=== PATIENT | male | born 1990 | race African-American/Black ===

== ENCOUNTER 2018-05-23 02:17 | Emergency (ER) | payer SELFPAY ==
[~2018-05-23] VITALS: Ht 165.1 cm; Wt 43.0 kg
[2018-05-23 02:24] VITALS: BP 116/78; PULSE 79; RESP 16; Ht 165.1 cm; Wt 43.0 kg
--- NOTE | 2018-05-23 03:05 | ERD ---
ER Documentation Chief Complaint Chief Complaint lump to l cheek x 1 week HPI This is a 27-year-old male who presents to emergency department with complaints of right cheek swelling for about a week. Denies use of illegal drugs. Stated that he has a house in his teeth due to tooth decay. Denies headache, head injury, loss of consciousness, dizziness, neck pain, neck stiffness, throat pain, difficulty swallowing, difficulty breathing lying flat, shoulder pain, chest pain, back pain, abdominal pain, nausea, vomiting, constipation, diarrhea, urinary symptoms, loss of bowel and bladder control, trauma, injury, falls, difficulty walking due to pain, numbness or tingling sensation, calf pain, recent travel, recent major surgery in the last 3 weeks, calf pain, recent long travel, recent exposure to any illness, recent antibiotic use in the last 3 months, fever, chills, seizures. Past medical history: Denies. Surgical history: Denies. Social: Denies smoking, use of alcoholic beverages, use of illegal drugs. ROS All systems reviewed and are negative except as per history of present illness. Medications Home Meds Active Scripts Ibuprofen* (Motrin*) 600 Mg Tab, 600 MG PO Q6H PRN for PAIN AND OR ELEVATED TEMP, #30 TAB Prov:PASILABAN,KLAR F 05/23/18 Sulfamethoxazole/Trimethoprim* (Bactrim Ds* Tablet) 1 Each Tablet, 1 TAB PO BID for 7 Days, #14 TAB Prov:PASILABAN,KLAR F 05/23/18 Cephalexin* (Keflex*) 500 Mg Capsule, 500 MG PO TID for 7 Days, CAP Prov:PASILABAN,KLAR F 05/23/18 Allergies Allergies: Coded Allergies: No Known Allergy (Unverified , 05/23/18) Physical Exam Vitals Vital Signs Date Temp Pulse Resp B/P (MAP) Pulse Ox O2 O2 Flow FiO2 Time Delivery Rate 05/23/18 98.4 79 16 116/78 98 02:24 (91) Physical Exam Const: No acute distress Head: Atraumatic Eyes: Normal Conjunctiva ENT: Normal External Ears, Nose and Mouth. Bilateral ears: TMs are not erythematous. No bleeding. No discharge with no hearing loss. No mastoid tenderness. Nose: There is no frontal or maxillary sinus tenderness to palp ation. Throat: Uvula is in midline and nondisplaced. Tonsils are +1 bilaterally without redness without exudates. Able to control tongue movement. Tolerating secretions. Patent airway. Speaks full and clear sentences. No lip swelling. No signs of angioedema. Neck: Full range of motion. No meningismus. Resp: Clear to auscultation bilaterally Cardio: Regular rate and rhythm, no murmurs Abd: Soft, non tender, non distended. Normal bowel sounds Skin: No petechiae or rashes. There is a circular redness/wrist/warm to touch to right cheek that is measuring approximately 3 cm in diameter. Back: No midline or flank tenderness Ext: No cyanosis, or edema Neur: Awake and alert. No neurological deficit. Psych: Normal Mood and Affect Results 24 hrs Current Medications Medications Dose Sig/Elda Start Time Status Last (Trade) Ordered Route PRN Stop Time Admin Dose Reason Admin 1 tab ONCE ONCE 05/23/18 DC 05/23/18 Acetaminophen PO 03:30 03:26 / 05/23/18 03:31 Hydrocodone Bitart (Hyder (10/325)) Lidocaine 20 ml ONCE ONCE 05/23/18 DC (Xylocaine SC 03:30 1% (Mdv) 20 05/23/18 03:31 ml) Bacitracin 1 applic ONCE ONCE 05/23/18 DC 05/23/18 (Bacitracin TOP 04:00 03:59 Oint (Ud)) 05/23/18 04:01 Procedures/MDM Diagnostic tests: Clinical exam. This case was discussed with my supervising physician, Dr. Michelle Hightower who agreed for me to do an I&D. Treatment: Hyder p.o. I explained to the patient that I am not a plastic surgeon and that long-term scarring is visible. He verbalized understanding and insisted for me to do an incision and drainage. Procedure: Incision and drainage. Betadine prep. Lidocaine 1% 2 cc subcu. Incision and drainage done. Drained copious amount of mucopurulent discharge. Patient refuses for me to put a packing in it. Bacitracin and dressing was applied by EMT. Re-evaluation: No active bleeding. Denies pain. No neurological deficits. Differential diagnosis I have low suspicion for sepsis, mastoiditis, peritonsillar abscess, deep space infection. Final diagnosis: Facial cellulitis. Facial abscess. Prescription: Keflex. Bactrim. Motrin. Follow-up with PCP in the next 24-48 hours. Come back in 2 days for a wound check. Come back here in the emergency department for any new symptoms or any worsening symptoms. All questions and concerns were answered. Patient and family members verbalized understanding and agreed with plan of care. Hemodynamically stable on discharge. Departure Diagnosis: Primary Impression: Acute abscess Additional Impression: Cellulitis Condition: Stable Additional Instructions: Follow-up with PCP in the next 24-48 hours. Come back in 2 days for a wound check. Come back here in the emergency department for any new symptoms or any worsening symptoms. IDALMIS SHAFFER May 23, 2018 03:05
[2018-05-23] MEDS ORDERED: IBUP-1542 PO (03:09)
[2018-05-23] MEDS ORDERED: CEPH-443 PO (03:09)
[2018-05-23] MEDS ORDERED: SULF1TAB31 PO (03:09)
[2018-05-23] MEDS ORDERED: HYDROCODONE/APAP (10/325) TAB PO ONE (03:30)
[2018-05-23] MEDS ORDERED: LIDOCAINE 1% (MDV) 20 ML INJ SC ONE (03:30)
[2018-05-23] MEDS ORDERED: BACITRACIN 0.9 GM OINT TOP ONE (04:00)
== END 2018-05-23 04:10 | disposition home or self-care (01) ==
LOC: EDBD → FTE 02:17
DX: L02.01 Cutaneous abscess of face (principal); L03.211 Cellulitis of face

== ENCOUNTER 2018-06-13 08:36 | Emergency (ER) | payer SELFPAY ==
[~2018-06-13] VITALS: Wt 44.4 kg
[~2018-06-13 08:36] MED LIST: CEPH-443 PO; IBUP-1542 PO; SULF1TAB31 PO
[2018-06-13] MEDS ORDERED: SOD CHLORIDE 0.9% 1,000 ML IV STA (09:05)
[2018-06-13] MEDS ORDERED: ONDANSETRON 4 MG INJ IV STA (09:05)
[2018-06-13] MEDS ORDERED: morphine 4 MG/ML VIAL IV STA (09:08)
[2018-06-13] MEDS ORDERED: FAMOTIDINE 20 MG INJ IV ONE (09:30)
[2018-06-13] MEDS ORDERED: CIPR500T4 PO (11:37)
[2018-06-13] MEDS ORDERED: METR500T PO (11:37)
[2018-06-13] MEDS ORDERED: HYDR-4011 PO (11:38)
[2018-06-13] MEDS ORDERED: ACET500C5 PO (11:46)
[2018-06-13 12:09] VITALS: BP 110/75; PULSE 75
--- NOTE | 2018-06-13 15:56 | ERD ---
ER Documentation Chief Complaint Chief Complaint ABD PAIN SINCE MORNING HPI 27-year-old male presents with epigastric pain since this morning. Patient denies any chest pain or shortness of breath. No fevers. Denies abdominal pain. Denies any changes to urination or bowel movement. Has not taken medications for symptoms. Denies medical problems. NKDA. Surgical history denies. Social history denies ROS All systems reviewed and are negative except as per history of present illness. Medications Home Meds Active Scripts Acetaminophen* (Tylophen*) 500 Mg Capsule, 2 CAP PO Q8H PRN for PAIN AND OR ELEVATED TEMP, #20 CAP Prov:KWABENA LIMA-C 06/13/18 Metronidazole* (Flagyl*) 500 Mg Tablet, 500 MG PO TID for 7 Days, TAB Prov:KWABENA LIMAC 06/13/18 Ciprofloxacin Hcl* (Ciprofloxacin Hcl*) 500 Mg Tablet, 500 MG PO BID for 7 Days, TAB Prov:KWABENA LIMA PA-C 06/13/18 Ibuprofen* (Motrin*) 600 Mg Tab, 600 MG PO Q6H PRN for PAIN AND OR ELEVATED TEMP, #30 TAB Prov:ERINILAELISHA BARAJASAR F 05/23/18 Sulfamethoxazole/Trimethoprim* (Bactrim Ds* Tablet) 1 Each Tablet, 1 TAB PO BID for 7 Days, #14 TAB Prov:ERINILABANELISHAAR F 05/23/18 Cephalexin* (Keflex*) 500 Mg Capsule, 500 MG PO TID for 7 Days, CAP Prov:PASILABAN,ELISHAAR F 05/23/18 Allergies Allergies: Coded Allergies: No Known Allergy (Unverified , 05/23/18) PMhx/Soc Medical and Surgical Hx: pt denies Medical Hx, pt denies Surgical Hx Hx Alcohol Use: No Hx Substance Use: No Hx Tobacco Use: No Smoking Status: Never smoker FmHx Family History: No diabetes, No coronary disease, No other Physical Exam Vitals Vital Signs Date Temp Pulse Resp B/P (MAP) Pulse Ox O2 O2 Flow FiO2 Time Delivery Rate 06/13/18 97.7 75 110/75 99 Room Air 12:09 (87) 06/13/18 97.7 98 22 140/69 99 08:40 (92) Physical Exam GENERAL: The patient is well-appearing, well-nourished, in no acute distress CHEST: Clear to auscultation bilaterally. There are no rales, wheezes or rhonchi. HEART: Regular rate and rhythm. No murmurs, clicks, rubs or gallops. No S3 or S4. ABDOMEN: Normal active bowel sounds. No distention. Some tender to palpation in epigastric region with no rebound tenderness. BACK: No midline or flank tenderness. Result Diagram: 06/13/1891906/13/18919 Results 24 hrs Laboratory Tests Test 06/13/18 09:20 06/13/18 10:39 White Blood Count 7.1 10^3/ul Red Blood Count 5.45 10^6/ul Hemoglobin 14.7 g/dl Hematocrit 43.9 % Mean Corpuscular Volume 80.6 fl Mean Corpuscular Hemoglobin 27.0 pg Mean Corpuscular Hemoglobin Concent 33.5 g/dl Red Cell Distribution Width 14.0 % Platelet Count 225 10^3/UL Mean Platelet Volume 9.4 fl Immature Granulocytes % 0.600 % Neutrophils % 79.5 % Lymphocytes % 15.8 % Monocytes % 2.7 % Eosinophils % 1.1 % Basophils % 0.3 % Nucleated Red Blood Cells % 0.0 /100WBC Immature Granulocytes # 0.040 10^3/ul Neutrophils # 5.6 10^3/ul Lymphocytes # 1.1 10^3/ul Monocytes # 0.2 10^3/ul Eosinophils # 0.1 10^3/ul Basophils # 0.0 10^3/ul Nucleated Red Blood Cells # 0.0 10^3/ul Sodium Level 141 mmol/L Potassium Level 3.6 mmol/L Chloride Level 103 mmol/L Carbon Dioxide Level 27 mmol/L Anion Gap 11 Blood Urea Nitrogen 14 mg/dl Creatinine 0.91 mg/dl Est Glomerular Filtrat Rate mL/min > 60 mL/min Glucose Level 126 mg/dl Calcium Level 10.1 mg/dl Total Bilirubin 1.5 mg/dl Direct Bilirubin 0.00 mg/dl Indirect Bilirubin 1.5 mg/dl Aspartate Amino Transf (AST/SGOT) 140 IU/L Alanine Aminotransferase (ALT/SGPT) 73 IU/L Alkaline Phosphatase 52 IU/L Total Protein 7.9 g/dl Albumin 4.8 g/dl Globulin 3.10 g/dl Albumin/Globulin Ratio 1.54 Lipase 75 U/L Urine Color YELLOW Urine Clarity CLEAR Urine pH 6.0 Urine Specific [place] 1.020 Urine Ketones TRACE mg/dL Urine Nitrite NEGATIVE mg/dL Urine Bilirubin NEGATIVE mg/dL Urine Urobilinogen 1+ mg/dL Urine Leukocyte Esterase NEGATIVE Augustus/ul Urine Hemoglobin NEGATIVE mg/dL Urine Glucose NEGATIVE mg/dL Urine Total Protein NEGATIVE mg/dl Urine Opiates Screen Positive Urine Barbiturates Negative Urine Amphetamines Screen Negative Urine Benzodiazepines Screen Negative Urine Cocaine Screen Negative Urine Cannabinoids Positive Current Medications Medications Dose Sig/Elda Start Time Status Last (Trade) Ordered Route PRN Stop Time Admin Dose Reason Admin Sodium 1,000 ml @ Q1H STAT 06/13/18 DC 06/13/18 Chloride 1,000 mls/hr IV 09:05 09:16 06/13/18 10:04 Ondansetron 4 mg ONCE STAT 06/13/18 DC 06/13/18 HCl (Zofran IV 09:05 09:16 Inj) 06/13/18 09:06 Morphine 4 mg ONCE STAT 06/13/18 DC 06/13/18 Sulfate IV 09:08 09:16 (morphine) 06/13/18 09:10 Famotidine 20 mg ONCE ONCE 06/13/18 DC 06/13/18 (Pepcid Iv) IV 09:30 09:16 06/13/18 09:31 Procedures/MDM DIAGNOSTIC IMAGING REPORT Patient: MOSHE BEJARANO : 1990 Age: 27 Sex: M MR #: [id number] DOS: 06/13/18 1001 Ordering MD: ALISON LIMA PA-C Location: [facility] Room/Bed: PROCEDURE: CT ABDOMEN AND PELVIS WITHOUT CONTRAST. CLINICAL INDICATION: Abdominal pain with vomiting TECHNIQUE: CT scan of the abdomen and pelvis without contrast was performed on a multidetector high-resolution CT scanner. The patient was scanned without intravenous contrast. Coronal and sagittal reformatted images were obtained from the axial source images. Images were reviewed on a high-resolution PACS workstation. The total exam CTDI equals for mGy and the total exam DLP equals 195 mGy-cm. One or more of the following dose reduction techniques were used: Automated exposure control. Adjustment of the mA and/or kV according to patient size. Use of iterative reconstruction technique. DICOM images are available COMPARISON: None FINDINGS: CT abdomen: The lung bases are clear. The heart size is within normal limits. There is no significant pericardial effusion. Hepatic morphology is within normal limits. No gross contour deforming masses. The gallbladder is within normal limits. No evidence of intrahepatic or extrahepatic biliary dilatation. The spleen and pancreas are within normal limits. Both adrenal glands are within normal limits. There is a right pelvic kidney. Left kidney is unremarkable. No gross renal/ureteric calculi. No evidence of obstructive uropathy. Visualized GI tract demonstrate normal caliber loops of small large bowel. No evidence of bowel obstruction. The appendix is within normal limits. Several fluid filled loops of small and large bowel noted. The unenhanced aorta is unremarkable. No significant retroperitoneal lymphadenopathy. CT pelvis: The bladder is within normal limits. Prostate is normal size. The rectosigmoid colon demonstrate diverticulosis. No significant free fluid. No pelvic lymphadenopathy. The visualized osseous structures, appears to be within normal limits. IMPRESSION: 1. No evidence of bowel obstruction. The appendix is within normal limits. 2. Fluid-filled loops of small and large bowel suggestive of gastroenteritis and watery diarrhea. 3. Right pelvic kidney. No evidence of obstructive uropathy. The left kidney is unremarkable without evidence of obstructive uropathy. 4. No evidence of free fluid or free air. No gross focal fluid collections. DIAGNOSTIC IMAGING REPORT Patient: MOSHE BEJARANO : 1990 Age: 27 Sex: M MR #: [id number] DOS: 06/13/18 0905 Ordering MD: ALISON LIMA PA-C Location: [facility] Room/Bed: PROCEDURE: US Abdomen. CLINICAL INDICATION: abdominal pain TECHNIQUE: Multiple real-time images were acquired of the patient's right upper quadrant abdomen and retroperitoneum utilizing a high resolution transducer. COMPARISON: None FINDINGS: The liver demonstrates normal echogenicity. The liver is normal in size and no focal solid lesions are seen. The liver measures 12.4 cm in length. The portal vein is patent with normal direction of flow. No intrahepatic biliary dilatatio n is seen. The gallbladder is contracted. No gallstones are identified within the gallbladder. There is no pericholecystic fluid or gallbladder wall thickening. The common bile duct measures 3 mm in maximal dimension. The visualized portions of the pancreas are unremarkable. The tail of the pancreas is not seen. No free fluid is identified. The right kidney is seen within the pelvis. The right kidney is normal in size, and demonstrate normal echogenicity and cortical thickness. The right kidney measures 8.3 cm in long dimension. There is no evidence of hydronephrosis. There are no kidney stones. RPTAT: AA IMPRESSION: Ectopic pelvic right kidney. No evidence of gallstones. MDM: 27-year-old male presenting with epigastric pain. I have low suspicion for choledocholithiasis, cholecystitis or pancreatitis. She has findings consistent with enteritis and patient will be treated with antibiotics. I have low suspicion for acute abdominal emergency. Patient is told symptoms change or worsen to return immediately to the ER. Patient is discharged with stricter p recautions. All questions answered at discharge. Patient is recommended follow-up with primary care in 1-2 days for close evaluation Departure Diagnosis: Primary Impression: Abdominal pain Condition: Stable Patient Instructions: Abdominal Pain Referrals: [facility] YOU HAVE RECEIVED A MEDICAL SCREENING EXAM AND THE RESULTS INDICATE THAT YOU DO NOT HAVE A CONDITION THAT REQUIRES URGENT TREATMENT IN THE EMERGENCY DEPARTMENT. FURTHER EVALUATION AND TREATMENT OF YOUR CONDITION CAN WAIT UNTIL YOU ARE SEEN IN YOUR DOCTORS OFFICE WITHIN THE NEXT 1-2 DAYS. IT IS YOUR RESPONSIBILITY TO MAKE AN APPOINTMENT FOR FOLOW-UP CARE. IF YOU HAVE A PRIMARY DOCTOR --you should call your primary doctor and schedule an appointment IF YOU DO NOT HAVE A PRIMARY DOCTOR YOU CAN CALL OUR PHYSICIAN REFERRAL HOTLINE AT IF YOU CAN NOT AFFORD TO SEE A PHYSICIAN YOU CAN CHOSE FROM THE FOLLOWING [facility] [address] [facility] [address] [facility] [address] [facility] [address] [facility] [address] [facility]. [address] Additional Instructions: FOLLOW UP WITH YOUR PRIMARY CARE PHYSICIAN TOMORROW.Return to this facility if you are not improving as expected. KWABENA LIMA PA-C Jun 13, 2018 15:56
== END 2018-06-13 12:09 | disposition home or self-care (01) ==
LOC: FTE 08:36
DX: R10.13 Epigastric pain (principal)
CPT/HCPCS: 74176; 76705; 80053; 80307; 81003; 83690; 85025; J2270; J2405; J7030; 36415; 96361; 96374; 96375